=== PATIENT | female | born 1985 | race Caucasian/White ===

== ENCOUNTER 2018-12-05 11:37 | Emergency (ER) | payer OTHER ==
[~2018-12-05] VITALS: Ht 162.6 cm; Wt 61.2 kg
[2018-12-05 13:10] VITALS: BP 128/73
[2018-12-05] MEDS ORDERED: IBUPROFEN 600600 M1 PO (13:12)
[2018-12-05] MEDS ORDERED: ULTRAM 50MG TAB50 MG PO (13:12)
[2018-12-05] MEDS ORDERED: PENICILLIN V P500 MG PO (13:12)
== END 2018-12-05 13:21 | disposition home or self-care (01) ==
LOC: ER 11:37
DX: K13.79 Other lesions of oral mucosa (principal); K02.9 Dental caries, unspecified; K05.10 Chronic gingivitis, plaque induced; F17.210 Nicotine dependence, cigarettes, uncomplicated